=== PATIENT | female | born 1950 | race Caucasian/White ===

== ENCOUNTER 2025-03-27 17:18 | Inpatient (IN) | payer MEDICARE, OTHER ==
[~2025-03-27] VITALS: Ht 160 cm; Wt 65.8 kg
[2025-03-27] MEDS ORDERED: ASPIRIN 81 MG TAB.CHEW ONE (17:33)
[2025-03-27] MEDS: ASPIRIN 81 MG TAB.CHEW PO ONE (17:36)
[2025-03-27 17:41] LABS: PLATELET COUNT (AUTO) 166 K/uL (179-408); RED BLOOD CELL COUNT(AUTO) 3.93 MIL/uL (3.63-4.92); RED CELL DISTRIBUTION WIDTH 13.0 % (12.3-17.7); WHITE BLOOD COUNT (AUTO) 4.0 K/uL (3.8-11.8)
[2025-03-27] MEDS ORDERED: SERT25TA PO (17:45)
[2025-03-27] MEDS ORDERED: APIX2.5T PO (17:45)
[2025-03-27] MEDS ORDERED: ROSU10TA2 PO (17:45)
[2025-03-27] MEDS ORDERED: METO-356 PO (17:45)
[2025-03-27 17:49] LABS: CREATININE 0.5 mg/dL (0.6-1.3); SODIUM SERUM 141 mmol/L (136-145); UREA NITROGEN, BLOOD 11 mg/dL (7-18)
[2025-03-27] MEDS ORDERED: DICL100G61 TP (18:21)
[2025-03-27] MEDS ORDERED: DOCU100T2 PO (18:21)
[2025-03-27] MEDS ORDERED: ASPI81TA31 PO (18:21)
[2025-03-27] MEDS ORDERED: EVOL140P3 SQ (18:21)
[2025-03-27] MEDS ORDERED: FINA1TAB13 PO (18:21)
[2025-03-27] MEDS ORDERED: CALC600T35 PO (18:21)
[2025-03-27] MEDS ORDERED: DENO60DI SQ (18:21)
[2025-03-27] MEDS ORDERED: ACETAMINOPHEN 325 MG TABLET PO PRN (18:45)
[2025-03-27] MEDS ORDERED: REMEDY ESSENTIAL ZINC PASTE 113 GM TP PRN (18:45)
[2025-03-27] MEDS ORDERED: ONDANSETRON 4 MG/2 ML VIAL IV PRN (18:45)
[2025-03-27 19:30] VITALS: BP 110/65
[2025-03-28 00:02] VITALS: BP 95/36; TEMP 98.6; O2SAT 92
[2025-03-28 05:17] VITALS: BP 109/37; TEMP 98.3; O2SAT 95
[2025-03-28 06:01] LABS: PLATELET COUNT (AUTO) 163 K/uL (179-408); RED BLOOD CELL COUNT(AUTO) 3.84 MIL/uL (3.63-4.92); RED CELL DISTRIBUTION WIDTH 13.4 % (12.3-17.7); WHITE BLOOD COUNT (AUTO) 3.8 K/uL (3.8-11.8)
[2025-03-28 06:16] LABS: CREATININE 0.4 mg/dL (0.6-1.3); SODIUM SERUM 140 mmol/L (136-145); UREA NITROGEN, BLOOD 10 mg/dL (7-18)
[2025-03-28 08:06] VITALS: BP 111/47; TEMP 98.3; O2SAT 94
[2025-03-28] MEDS: CALCIUM CARBONATE 600 MG TABLET PO SCH (08:58)
[2025-03-28] MEDS ORDERED: FINASTERIDE 1 MG PO SCH (09:00)
[2025-03-28] MEDS: DOCUSATE SODIUM 100 MG CAPSULE PO SCH (09:00)
[2025-03-28] MEDS: SERTRALINE HCL 50 MG TABLET PO SCH (09:01)
[2025-03-28] MEDS: ASPIRIN 81 MG TAB.CHEW PO SCH (09:22)
[2025-03-28] MEDS: APIXABAN 2.5 MG TABLET PO SCH (09:29)
[2025-03-28 11:47] VITALS: BP 111/47; TEMP 98.3; O2SAT 94
[2025-03-28] MEDS ORDERED: ATORVASTATIN 20 MG TABLET PO SCH (21:00)
== END 2025-03-28 15:40 | disposition home or self-care (01) | DRG 303 ==
LOC: ER 17:36 → TELE3 20:12
PROVIDERS: ADMIT Internal Medicine; ATTEND Internal Medicine
DX: I25.110 Atherosclerotic heart disease of native coronary artery with unstable angina pectoris (principal); D68.59 Other primary thrombophilia; Z79.01 Long term (current) use of anticoagulants; I11.9 Hypertensive heart disease without heart failure; I25.2 Old myocardial infarction; I48.0 Paroxysmal atrial fibrillation; Z95.5 Presence of coronary angioplasty implant and graft; Z79.82 Long term (current) use of aspirin; Z79.899 Other long term (current) drug therapy; E78.5 Hyperlipidemia, unspecified; I25.10 Atherosclerotic heart disease of native coronary artery without angina pectoris
CPT/HCPCS: 36415; 71045; 83735; 84100; 84484; 85025; 93307; A4606; A4663; G0378